=== PATIENT | female | born 1985 | race Caucasian/White ===

== ENCOUNTER 2018-04-05 09:48 | Emergency (ER) | payer OTHER, SELFPAY ==
[2018-04-05 10:33] LABS: Absolute Lymphocytes (CBC) 0.8 K/uL (0.7-4.9); Absolute Monocytes 0.4 K/uL (0.1-1.3); Absolute Neutrophil 3.3 K/uL (1.8-8.0); Basophils % 0.4 % (0-1.3); Eosinophils % 0.9 % (0-4.4); Hematocrit 44.2 % (36.0-45.0); Lymphocytes % 17.6 % (15.3-44.8); MCH 32.4 pg (27.0-35.0); MCV 96.2 fL (80-100); MPV 7.9 fL (7.6-11.3); Monocytes % 7.8 % (3.3-12.3); RBC Red Blood Cell Count 4.59 M/uL (3.86-4.86)
[2018-04-05 10:49] LABS: BUN Blood Urea Nitrogen 11 mg/dL (7-18); Bicarbonate 21 mmol/L (21-32); Glucose Level 92 mg/dL (74-106); Potassium 3.7 mmol/L (3.5-5.1); Sodium Level 139 mmol/L (136-145)
[2018-04-05] MEDS ORDERED: ONDANSETRON 4 MG/2 ML VIAL ONE (10:55)
[2018-04-05] MEDS ORDERED: NA CHLORIDE 0.9% 1,000 ML ONE (10:56)
--- NOTE | 2018-04-05 11:48 | EDPHYS ---
Physician Documentation [facility] Name: Carlyn Trevino Age: 32 yrs Sex: Female : 1985 Arrival Date: 04/05/2018 Time: 09:52 Bed 25 Private MD: None, None ED Physician Earl Forrester HPI: 04/05 10:14 This 32 yrs old Female presents to ER via Ambulatory with complaints of jr8 Nausea/Vomiting/Diarrhea, Dizziness. 10:14 The patient presents to the emergency department with nausea, vomiting, diarrhea. jr8 Onset: The symptoms/episode began/occurred acutely, 2 day(s) ago. Possible causes: unknown. The symptoms are aggravated by food , The symptoms are alleviated by nothing. Associated signs and symptoms: The patient has no apparent associated signs or symptoms. Severity of symptoms: At their worst the symptoms were moderate in the emergency department the symptoms have improved. The patient has not experienced similar symptoms in the past. The patient has not recently seen a physician. stated that s/s have started to reside but was very dizzy this morning. DISTILLER: 10:02 LMP 03/29/2018 ss Historical: - Allergies: 10:02 No Known Allergies; ss - Home Meds: 10:02 None [Active]; ss - PMHx: 10:02 None; ss - PSHx: 10:02 None; ss - Immunization history:: Adult Immunizations up to date. - Social history:: Smoking status: Patient uses tobacco products, denies chronic smoking, but will smoke occasionally. - Ebola Screening: : Patient denies exposure to infectious person Patient denies travel to an Ebola-affected area in the 21 days before illness onset. ROS: 10:14 Eyes: Negative for injury, pain, redness, and discharge, ENT: Negative for injury, jr8 pain, and discharge, Neck: Negative for injury, pain, and swelling, Cardiovascular: Negative for chest pain, palpitations, and edema, Respiratory: Negative for shortness of breath, cough, wheezing, and pleuritic chest pain, Back: Negative for injury and pain, MS/Extremity: Negative for injury and deformity, Skin: Negative for injury, rash, and discoloration, Neuro: Negative for headache, weakness, numbness, tingling, and seizure. 10:14 Abdomen/GI: Positive for nausea, vomiting, and diarrhea, abdominal cramps, Negative for abdominal pain, abdominal distension, anorexia, dysphagia, hematemesis, black/tarry stool, rectal pain, rectal bleeding, bowel incontinence, flatulence. Exam: 10:14 Eyes: Pupils equal round and reactive to light, extra-ocular motions intact. Lids and jr8 lashes normal. Conjunctiva and sclera are non-icteric and not injected. Cornea within normal limits. Periorbital areas with no swelling, redness, or edema. ENT: Nares patent. No nasal discharge, no septal abnormalities noted. Tympanic membranes are normal and external auditory canals are clear. Oropharynx with no redness, swelling, or masses, exudates, or evidence of obstruction, uvula midline. Mucous membranes moist. Neck: Trachea midline, no thyromegaly or masses palpated, and no cervical lymphadenopathy. Supple, full range of motion without nuchal rigidity, or vertebral point tenderness. No Meningismus. Cardiovascular: Regular rate and rhythm with a normal S1 and S2. No gallops, murmurs, or rubs. Normal PMI, no JVD. No pulse deficits. Respiratory: Lungs have equal breath sounds bilaterally, clear to auscultation and percussion. No rales, rhonchi or wheezes noted. No increased work of breathing, no retractions or nasal flaring. Abdomen/GI: Soft, non-tender, with normal bowel sounds. No distension or tympany. No guarding or rebound. No evidence of tenderness throughout. Back: No spinal tenderness. No costovertebral tenderness. Full range of motion. Skin: Warm, dry with normal turgor. Normal color with no rashes, no lesions, and no evidence of cellulitis. MS/ Extremity: Pulses equal, no cyanosis. Neurovascular intact. Full, normal range of motion. Neuro: Awake and alert, GCS 15, oriented to person, place, time, and situation. Cranial nerves II-XII grossly intact. Motor strength 5/5 in all extremities. Sensory grossly intact. Cerebellar exam normal. Normal gait. Vital Signs: 10:02 BP 121 / 86; Pulse 86; Resp 16; Temp 97.8(TE); Pulse Ox 99% on R/A; Weight 81.65 kg; ss Height 5 ft. 3 in. (160.02 cm); Pain 0/10; 11:15 BP 114 / 82; Pulse 80; Resp 16; Pulse Ox 97% on R/A; mt 12:22 BP 117 / 83; Pulse 77; Resp 18; Pulse Ox 98% ; aj1 10:02 Body Mass Index 31.89 (81.65 kg, 160.02 cm) MDM: 10:09 Patient medically screened. 11:09 Differential diagnosis: Nonspecific abd pain, gastritis, viral gastroenteritis, jr8 gastroenteritis. Data reviewed: vital signs, nurses notes, lab test result(s), and as a result, I will discharge patient. Data interpreted: Pulse oximetry: on room air is 99 %. Interpretation: normal. Counseling: I had a detailed discussion with the patient and/or guardian regarding: the historical points, exam findings, and any diagnostic results supporting the discharge/admit diagnosis, lab results, the need for outpatient follow up, a family practitioner, to return to the emergency department if symptoms worsen or persist or if there are any questions or concerns that arise at home. Response to treatment: the patient's symptoms have markedly improved after treatment, patient is well hydrated. 04/05 10:14 Order name: CBC with Diff; Complete Time: 11:09 04/05 10:14 Order name: Basic Metabolic Panel; Complete Time: 10:50 04/05 11:17 Order name: Urine Dipstick--Ancillary (enter results); Complete Time: 12:18 04/05 11:17 Order name: Urine --Ancillary (enter results); Complete Time: 12:18 04/05 10:14 Order name: IV; Complete Time: 10:27 [facility] 04/05 10:14 Order name: Urine Test (obtain specimen); Complete Time: 10:14 [facility] 04/05 10:14 Order name: Urine Dipstick-Ancillary (obtain specimen); Complete Time: 10:14 Administered Medications: 11:06 Drug: NS 0.9% 1000 ml Route: IV; Rate: 1000 ml; Site: left antecubital; aj1 12:23 Follow up: IV Status: Completed infusion; IV Intake: 1000ml aj 11:06 Drug: Zofran 4 mg Route: IVP; Site: left antecubital; aj1 12:23 Follow up: Response: No adverse reaction aj1 Disposition: 04/05/18 11:47 Discharged to Home. Impression: Viral Gastroenteritis vs. Food Poisoning, Dehydration. - Condition is Stable. - Discharge Instructions: Dehydration, Adult, Viral Gastroenteritis. - Prescriptions for ondansetron 4 mg Oral tablet,disintegrating - place 1 tablet by TRANSLINGUAL route every 8 hours As needed; 10 tablet. - Work release form, Medication Reconciliation Form, Thank You Letter, Antibiotic Education, Prescription Opioid Use form. - Follow up: Private Physician; When: As needed; Reason: Recheck today's complaints, Continuance of care, Re-evaluation by your physician. - Problem is new. - Symptoms have improved. Addendum: 04/07/2018 14:42 Co-signature as Attending Physician, Earl Forresetr MD I agree with the assessment and w a plan of care. Signatures: Dispatcher [employer] EDYazmin Renteria RN RN aj1 Diane Robles RN RN ss Gordon Pennington, CHRYSTAL PA jr8 Earl Forrester MD MD wa Corrections: (The following items were deleted from the chart) 04/05 12:23 11:47 04/05/2018 11:47 Discharged to Home. Impression: Viral Gastroenteritis vs. Food aj1 Poisoning; Dehydration. Condition is Stable. Discharge Instructions: Dehydration, Adult, Viral Gastroenteritis. Prescriptions for ondansetron 4 mg Oral tablet,disintegrating - place 1 tablet by TRANSLINGUAL route every 8 hours As needed; 10 tablet. and Forms are Medication Reconciliation Form, Thank You Letter, Antibiotic Education, Prescription Opioid Use. Follow up: Private Physician; When: As needed; Reason: Recheck today's complaints, Continuance of care, Re-evaluation by your physician. Problem is new. Symptoms have improved. jr8
--- NOTE | 2018-04-05 11:48 | ER ---
Nurse's Notes [facility] Name: Carlyn Trevino Age: 32 yrs Sex: Female : 1985 Arrival Date: 04/05/2018 Time: 09:52 Bed 25 Private MD: None, None Diagnosis: Viral Gastroenteritis vs. Food Poisoning;Dehydration Presentation: 04/05 10:01 Presenting complaint: Patient states: N/V/D and abd cramping that began 3 days ago. ss Transition of care: patient was not received from another setting of care. Onset of symptoms was April 02, 2018. Risk Assessment: Do you want to hurt yourself or someone else? Patient reports no desire to harm self or others. Initial Sepsis Screen: Does the patient meet any 2 criteria? No. Patient's initial sepsis screen is negative. Does the patient have a suspected source of infection? No. Patient's initial sepsis screen is negative. Care prior to arrival: None. 10:01 Method Of Arrival: Ambulatory ss 10:01 Acuity: LETI 3 ss Triage Assessment: 10:02 General: Appears in no apparent distress. comfortable, Behavior is calm, cooperative. ss Pain: Denies pain. Neuro: Level of Consciousness is awake, alert. GI: Reports diarrhea, nausea, vomiting. Derm: Skin is pink, warm \T\ dry. 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 - Social history:: Smoking status: Patient uses tobacco products, denies chronic smoking, but will smoke occasionally. - Ebola Screening: : Patient denies exposure to infectious person Patient denies travel to an Ebola-affected area in the 21 days before illness onset. Screenin:03 Abuse screen: Denies threats or abuse. Denies injuries from another. Nutritional ss screening: No deficits noted. Tuberculosis screening: Never had TB. Fall Risk None identified. Assessment: 10:49 General: Appears in no apparent distress. uncomfortable, Behavior is calm, cooperative, aj1 appropriate for age. Pain: Denies pain. Neuro: Level of Consciousness is awake, alert, obeys commands, Oriented to person, place, time, situation, Speech is normal, Facial symmetry appears normal. Cardiovascular: Patient's skin is warm and dry. Respiratory: Airway is patent Respiratory effort is even, unlabored, Respiratory pattern is regular, symmetrical. GI: Abdomen is flat, non-distended, Bowel sounds present X 4 quads. Abd is soft and non tender X 4 quads. Reports diarrhea, nausea, vomiting, Patient currently denies abdominal pain. : No signs and/or symptoms were reported regarding the genitourinary system. EENT: No signs and/or symptoms were reported regarding the EENT system. Derm: No signs and/or symptoms reported regarding the dermatologic system. Skin is pink, warm \T\ dry. normal. Musculoskeletal: No signs and/or symptoms reported regarding the musculoskeletal system. Circulation, motion, and sensation intact. 11:15 Reassessment: Patient appears in no apparent distress at this time. No changes from 1 previously documented assessment. Patient and/or family updated on plan of care and expected duration. Pain level reassessed. Patient is alert, oriented x 3, equal unlabored respirations, skin warm/dry/pink. 12:15 Reassessment: Patient appears in no apparent distress at this time. No changes from aj1 previously documented assessment. Patient and/or family updated on plan of care and expected duration. Pain level reassessed. Patient is alert, oriented x 3, equal unlabored respirations, skin warm/dry/pink. Vital Signs: 10:02 BP 121 / 86; Pulse 86; Resp 16; Temp 97.8(TE); Pulse Ox 99% on R/A; Weight 81.65 kg; Height 5 ft. 3 in. (160.02 cm); Pain 0/10; 11:15 BP 114 / 82; Pulse 80; Resp 16; Pulse Ox 97% on R/A; mt 12:22 BP 117 / 83; Pulse 77; Resp 18; Pulse Ox 98% ; aj1 10:02 Body Mass Index 31.89 (81.65 kg, 160.02 cm) ED Course: 09:52 Patient arrived in ED. sb2 09:52 None, None is Private Physician. sb2 10:01 Triage completed. ss 10:02 Arm band placed on right wrist. ss 10:09 Gordon Pennington PA is PHCP. jr8 10:09 Earl Forrester MD is Attending Physician. jr8 10:28 Initial lab(s) drawn, by me, sent to lab. Inserted saline lock: 22 gauge in left jb1 antecubital area, using aseptic technique. Blood collected. 10:48 Yazmin Bain, RN is Primary Nurse. aj1 10:49 Patient has correct armband on for positive identification. Bed in low position. Call aj1 light in reach. Side rails up X 1. 10:49 No provider procedures requiring assistance completed. aj1 12:15 IV discontinued, intact, bleeding controlled, No redness/swelling at site. me 12:22 IV discontinued, as documented above. aj1 Administered Medications: 11:06 Drug: NS 0.9% 1000 ml Route: IV; Rate: 1000 ml; Site: left antecubital; aj1 12:23 Follow up: IV Status: Completed infusion; IV Intake: 1000ml aj1 11:06 Drug: Zofran 4 mg Route: IVP; Site: left antecubital; aj1 12:23 Follow up: Response: No adverse reaction aj1 Intake: 12:23 IV: 1000ml; Total: 1000ml. aj1 Outcome: 11:47 Discharge ordered by . jr8 12:22 Discharged to home ambulatory. aj1 12:22 Condition: good 12:22 Discharge instructions given to patient, Instructed on discharge instructions, follow up and referral plans. medication usage, Demonstrated understanding of instructions, follow-up care, medications, Prescriptions given X 1. 12:23 Patient left the ED. aj1 Signatures: Pawan Leger jb1 Yazmin Bain, RAFAEL HALL aj1 Diane Robles RN RN ss Roszak, Josh, PA PA jr8 Charlene Montgomery me Lisa Mccallum2
[2018-04-05 12:13] LABS: Urine Blood TRACE (NEG); Urine Glucose NEGATIVE (NEG); Urine Protein 2+ (NEG); Urine Specific Gravity >1.030 (1.005-1.030); Urine pH 5.5 (5.0-7.0)
[2018-04-05 14:59] VITALS: TEMP 97.8
[2018-04-05 15:00] VITALS: BP 117/83; O2SAT 98
== END 2018-04-05 12:23 | disposition home or self-care (01) ==
LOC: ER 09:48
DX: R11.2 Nausea with vomiting, unspecified (principal); R19.7 Diarrhea, unspecified; R42 Dizziness and giddiness; E86.0 Dehydration; F17.200 Nicotine dependence, unspecified, uncomplicated
CPT/HCPCS: 36415; 80048; 81003; 81025; 85025; 96361; 96374; 99284; J2405; J7030

== ENCOUNTER 2021-02-05 02:56 | Emergency (ER) | payer OTHER, SELFPAY ==
--- OUTSIDE RECORDS SUMMARY | 2021-02-05 02:58 | XMS REPORT | Continuity of Care Document ---
:1985 Author Organization [facility] t Address [address] [place] [address] Care Team Providers Name Role Phone Lab, Fam Pob I Attending Clinician Unavailable Problems This patient has no known problems. Allergies, Adverse Reactions, Alerts This patient has no known allergies or adverse reactions. Medications This patient has no known medications. Procedures This patient has no known procedures. Encounters Start End Encounter Admission Attending Care Care Encounter Source Date/Time Date/Time Type Type Clinicians Facility Department ID 2020-05-26 2020-05-26 Laboratory Lab, [facility] [id number] 16:00:08 16:20:08 Only Fam Pob I Between [id number] Hallie [id number] Monique [id number] [address] Results This patient has no known results.
[2021-02-05] MEDS ORDERED: TETRACAINE HCL 0.5% 4ML OPTH ONE (03:24)
[2021-02-05] MEDS ORDERED: FLUORESCEIN SODIUM 1 MG/WRAP ONE (03:24)
--- NOTE | 2021-02-05 04:07 | ER ---
Nurse's Notes [facility] Name: Carlyn Trevino Age: 35 yrs Sex: Female : 1985 Arrival Date: 02/05/2021 Time: 02:57 Bed 17 Private MD: Diagnosis: Corneal ulcer Presentation: 02/05 03:00 Chief complaint: Patient states: noticed yesterday her left eye was getting itchy and iw irritated, was red, took contact out and it got more swollen , now it is so sensitive to the light it fraser. Coronavirus screen: At this time, the client does not indicate any symptoms associated with coronavirus-19. Ebola Screen: Patient negative for fever greater than or equal to 101.5 degrees Fahrenheit, and additional compatible Ebola Virus Disease symptoms Patient denies exposure to infectious person. Patient denies travel to an Ebola-affected area in the 21 days before illness onset. No symptoms or risks identified at this time. Mechanism of Injury: No Mechanism of Injury. The patient denies any loss of vision. Initial Sepsis Screen: Does the patient meet any 2 criteria? No. Patient's initial sepsis screen is negative. Does the patient have a suspected source of infection? No. Patient's initial sepsis screen is negative. Risk Assessment: Do you want to hurt yourself or someone else? Patient reports no desire to harm self or others. Onset of symptoms was February 05, 2021. 03:00 Method Of Arrival: Ambulatory iw 03:00 Acuity: LETI 4 iw HOSPITAL FELLOW: 03:02 LMP 01/19/2021 iw Historical: - Allergies: 03:02 No Known Allergies; iw - Home Meds: 03:02 None [Active]; iw - PMHx: 03:02 None; iw - PSHx: 03:02 None; iw - Immunization history:: Last tetanus immunization: unknown. - Social history:: Smoking status: Patient reports the use of cigarette tobacco products, smokes one-half pack cigarettes per day. - Family history:: not pertinent. Screenin:45 Abuse screen: Denies threats or abuse. Nutritional screening: No deficits noted. ea Tuberculosis screening: No symptoms or risk factors identified. Fall Risk None identified. Assessment: 03:45 General: Appears uncomfortable, Behavior is appropriate for age. Pain: Complains of ea pain in left eye. Neuro: Level of Consciousness is awake, alert, obeys commands, Oriented to person, place, time. Respiratory: Airway is patent Respiratory effort is even, unlabored, Respiratory pattern is regular, symmetrical. EENT: Eyes are tearing on inner aspect of conjunctiva of left eye Sclera/Cornea. 04:22 Reassessment: Patient and/or family updated on plan of care and expected duration. Pain ea level reassessed. Patient is alert, oriented x 3, equal unlabored respirations, skin warm/dry/pink. Discharge instruction given to patient verbalized the understanding of instruction. Vital Signs: 03:00 BP 132 / 97; Pulse 81; Resp 16; Pulse Ox 98% on R/A; Weight 104.33 kg; Height 5 ft. 3 iw in. (160.02 cm); Pain 9/10; 03:00 Body Mass Index 40.74 (104.33 kg, 160.02 cm) iw ED Course: 02:57 Patient arrived in ED. bp1 03:01 Triage completed. iw 03:07 Dulce Adhikari, RAFAEL is Primary Nurse. ea 03:09 Palomo Powell MD is Attending Physician. gilbert 03:46 Patient has correct armband on for positive identification. Bed in low position. Call ea light in reach. Side rails up X 1. 03:46 Arm band placed on right wrist. Patient placed in an exam room, on a stretcher, on ea pulse oximetry. 04:06 Elizabeth Campuzano MD is Referral Physician. gilbert 04:10 Assist provider with eye exam of left eye. using fluorescein stain, Performed by Palomo Powell MD Patient tolerated well. 04:24 Patient did not have IV access during this emergency room visit. ea Administered Medications: 03:42 Drug: Tetracaine Solution (0.5 %) 2 drops Route: Topical; Site: affected area; ea 04:05 Not Given (Duplicate Order): Tobramycin Ointment (0.3 %) 1 application Ophthalmic once gilbert 04:07 Drug: Senath (HYDROcodone-acetaminophen) 10 mg-325 mg 1 tabs Route: PO; ea 04:24 Follow up: Response: Medication administered at discharge. ea 04:15 Not Given (Other Intervention Used): Gentamicin Drops 0.3 % 2 drops Ophthalmic once ea 04:15 Drug: Tobramycin Ointment (0.3 %) 1 application Route: Ophthalmic; Site: left eye; derek Outcome: 04:07 Discharge ordered by . gilbert 04:23 Discharged to home ambulatory, with family. derek 04:23 Condition: stable 04:23 Discharge instructions given to patient, Instructed on discharge instructions, follow up and referral plans. medication usage, Demonstrated understanding of instructions, follow-up care, medications, Prescriptions given X 2. 04:24 Patient left the ED. ea Signatures: Palomo Powell MD MD cha Williams, Irene, RN RN Dulce Herrera, RN RN Hansa Dunn [facility] Corrections: (The following items were deleted from the chart) 03:03 03:00 BP 132 / 97; Pulse 81bpm; Resp 16bpm; Pulse Ox 98% RA; michael rodriguez
--- NOTE | 2021-02-05 04:07 | EDPHYS ---
Physician Documentation [facility] Name: Carlyn Trevino Age: 35 yrs Sex: Female : 1985 Arrival Date: 02/05/2021 Time: 02:57 Bed 17 Private MD: EMMETT Physician Palomo Powell HPI: 02/05 03:50 This 35 yrs old Female presents to ER via Ambulatory with complaints of Eye gilbert Pain. 03:50 The patient is experiencing foreign body sensation, pain, redness, The patient gilbert sustained Unknown. Onset: The symptoms/episode began/occurred yesterday. Duration: the symptoms are continuous. Aggravated by opening eye, Alleviated by blinking. Associated signs and symptoms: Pertinent positives: None. Pertinent negatives: None. Patient wears glasses, wears soft contacts. Severity of symptoms: At their worst the symptoms were moderate in the emergency department the symptoms are unchanged. The patient has not experienced similar symptoms in the past. 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 - Social history:: Smoking status: Patient reports the use of cigarette tobacco products, smokes one-half pack cigarettes per day. - Family history:: not pertinent. ROS: 03:50 Constitutional: Negative for fever, chills, and weight loss, ENT: Negative for injury, gilbert pain, and discharge, Neck: Negative for injury, pain, and swelling, Cardiovascular: Negative for chest pain, palpitations, and edema, Respiratory: Negative for shortness of breath, cough, wheezing, and pleuritic chest pain, Abdomen/GI: Negative for abdominal pain, nausea, vomiting, diarrhea, and constipation, Back: Negative for injury and pain, : Negative for injury, bleeding, discharge, and swelling, MS/Extremity: Negative for injury and deformity, Skin: Negative for injury, rash, and discoloration, Neuro: Negative for headache, weakness, numbness, tingling, and seizure, Psych: Negative for depression, anxiety, suicide ideation, homicidal ideation, and hallucinations, Allergy/Immunology: Negative for hives, rash, and allergies, Endocrine: Negative for neck swelling, polydipsia, polyuria, polyphagia, and marked weight changes, Hematologic/Lymphatic: Negative for swollen nodes, abnormal bleeding, and unusual bruising. 03:50 Eyes: Positive for matting, pain, photophobia, redness, of the iris of left eye. Exam: 03:50 Constitutional: This is a well developed, well nourished patient who is awake, alert, gilbert and in no acute distress. Head/Face: Normocephalic, atraumatic. ENT: Nares patent. No nasal discharge, no septal abnormalities noted. Tympanic membranes are normal and external auditory canals are clear. Oropharynx with no redness, swelling, or masses, exudates, or evidence of obstruction, uvula midline. Mucous membranes moist. Neck: Trachea midline, no thyromegaly or masses palpated, and no cervical lymphadenopathy. Supple, full range of motion without nuchal rigidity, or vertebral point tenderness. No Meningismus. Chest/axilla: Normal chest wall appearance and motion. Nontender with no deformity. No lesions are appreciated. Cardiovascular: Regular rate and rhythm with a normal S1 and S2. No gallops, murmurs, or rubs. Normal PMI, no JVD. No pulse deficits. Respiratory: Lungs have equal breath sounds bilaterally, clear to auscultation and percussion. No rales, rhonchi or wheezes noted. No increased work of breathing, no retractions or nasal flaring. Abdomen/GI: Soft, non-tender, with normal bowel sounds. No distension or tympany. No guarding or rebound. No evidence of tenderness throughout. Back: No spinal tenderness. No costovertebral tenderness. Full range of motion. Skin: Warm, dry with normal turgor. Normal color with no rashes, no lesions, and no evidence of cellulitis. MS/ Extremity: Pulses equal, no cyanosis. Neurovascular intact. Full, normal range of motion. Neuro: Awake and alert, GCS 15, oriented to person, place, time, and situation. Cranial nerves II-XII grossly intact. Motor strength 5/5 in all extremities. Sensory grossly intact. Cerebellar exam normal. Normal gait. Psych: Awake, alert, with orientation to person, place and time. Behavior, mood, and affect are within normal limits. 03:50 Eyes: Periorbital structures: swelling, that is mild, on the left upper eyelid, Pupils: no acute changes, equal, round, and reactive to light and accomodation, Extraocular movements: intact throughout, Conjunctiva: injected, Corneas: foreign body, on the left, at 4 o'clock, small ulcer, Sclera: no appreciated abnormality, no acute changes, Anterior chamber: normal, no acute changes, Lids and lashes: edema, of the left eye, left upper lid, funduscopic exam reveals no obvious abnormalities, Visual au: are intact, no acute changes, Nystagmus: is not appreciated. Vital Signs: 03:00 BP 132 / 97; Pulse 81; Resp 16; Pulse Ox 98% on R/A; Weight 104.33 kg; Height 5 ft. 3 iw in. (160.02 cm); Pain 9/10; 03:00 Body Mass Index 40.74 (104.33 kg, 160.02 cm) iw MDM: 03:09 Patient medically screened. [facility] 02/05 03:49 Order name: Eye Tray; Complete Time: 03:51 [facility] Administered Medications: 03:42 Drug: Tetracaine Solution (0.5 %) 2 drops Route: Topical; Site: affected area; ea 04:05 Not Given (Duplicate Order): Tobramycin Ointment (0.3 %) 1 application Ophthalmic once [facility] 04:07 Drug: [place] (HYDROcodone-acetaminophen) 10 mg-325 mg 1 tabs Route: PO; ea 04:24 Follow up: Response: Medication administered at discharge. ea 04:15 Not Given (Other Intervention Used): Gentamicin Drops 0.3 % 2 drops Ophthalmic once ea 04:15 Drug: Tobramycin Ointment (0.3 %) 1 application Route: Ophthalmic; Site: left eye; ea Disposition: 02/05/21 04:07 Discharged to Home. Impression: Corneal ulcer. - Condition is Stable. - Discharge Instructions: Corneal Ulcer. - Prescriptions for Tylenol- Codeine #3 300-30 mg Oral Tablet - take 2 tablets by ORAL route every 4-6 hours As needed; 20 tablet. Gentamicin 0.3 % Ophthalmic Drops - instill 2 drops by OPHTHALMIC route every 2 hours; 1 bottle. - Medication Reconciliation Form, Thank You Letter, Antibiotic Education, Prescription Opioid Use form. - Follow up: Elizabeth Campuzano MD; When: Today; Reason: Recheck today's complaints, Re-evaluation by your physician. - Problem is new. - Symptoms have improved. Signatures: Palomo Powell MD MD cha Williams, Irene RN Dulce Bradley RN RN ea Corrections: (The following items were deleted from the chart) 04:24 04:07 02/05/2021 04:07 Discharged to Home. Impression: Corneal ulcer. Condition is ea Stable. Forms are Medication Reconciliation Form, Thank You Letter, Antibiotic Education, Prescription Opioid Use. Follow up: Elizabeth Campuzano; When: Today; Reason: Recheck today's complaints, Re-evaluation by your physician. Problem is new. Symptoms have improved. gilbert
[2021-02-05] MEDS ORDERED: HYDROCODONE/APAP 10/325 TAB ONE (04:11)
[2021-02-05] MEDS ORDERED: TOBRAMYCIN SULF 0.3% OPTH OINT ONE (04:11)
[2021-02-05] MEDS ORDERED: GENTAMICIN 0.3% OPTH DROP 5ML ONE (04:23)
[2021-02-05 04:30] VITALS: BP 132/97; O2SAT 98
== END 2021-02-05 04:24 | disposition home or self-care (01) ==
LOC: ER 02:56
DX: H16.002 Unspecified corneal ulcer, left eye (principal); F17.210 Nicotine dependence, cigarettes, uncomplicated
CPT/HCPCS: 99283